=== PATIENT | male | born 1950 | race Caucasian/White ===

== ENCOUNTER 2018-11-03 15:17 | Outpatient (CLI) | payer BC, MEDICARE ==
--- NOTE | 2018-11-03 16:39 | RAD ---
TWO VIEWS OF THE CHEST: COMPARISON: 07/24/2014. HISTORY: Cough. FINDINGS: Two views of the chest show normal sized cardiomediastinal silhouette. There is no evidence of consol idation, mass, or pleural effusion. The bones are unremarkable. IMPRESSION: No evidence of acute cardiopulmonary disease. POS: [facility]
== END 2018-11-03 15:18 | disposition home or self-care (01) ==
LOC: RAD-FRANK 15:17
PROVIDERS: ATTEND Nurse Practitioner Family
DX: J20.9 Acute bronchitis, unspecified (principal)
CPT/HCPCS: 71046